=== PATIENT | female | born 1945 | race Asian ===

== ENCOUNTER 2017-02-03 15:55 | Emergency (ER) | payer MEDICARE, MEDICAID ==
[2017-02-03 16:41] VITALS: BP 156/82
--- NOTE | 2017-02-03 17:29 | UC ---
Skin Complaint HPI - HPI Summary HPI Summary: ONE WEEK AGO HAD BEEN TO [employer] IN [employer] BEGAN HAVING RASH AND ITCHINESS OF LEFT NECK; THREE DAYS AGO WAS GARDENING, HAVING FACIAL ITCHINESS, AND SWELLING. NO KNOWN ALLERGIES; NO FEVERS, NO TENDERNESS OR PAIN IN FACE. NO PAIN WITH EYE MOVEMENT. NO DENTAL PAIN. NO - History of Current Complaint Chief Complaint: UCSkin Time Seen by Provider: 02/03/17 17:09 Stated Complaint: RASH Hx Obtained From: Patient Onset/Duration: Gradual Onset, Lasting Weeks, Worse Since - FOUR DAYS Skin Exposure Onset/Duration: Weeks Ago Onset Severity: Mild Current Severity: Moderate Location: Face Character: Swelling, Pruritus Aggravating: Nothing Alleviating: Nothing Associated Signs & Symptoms: Positive: Rash. Negative: Fever, Chills, Cough, Wheezing, Drainage, Bruising, Tenderness, Red Streaks Related History: Possible Reaction to: Environmental Exposure - Allergy/Home Medications Allergies/Adverse Reactions: Allergies Allergy/AdvReac Type Severity Reaction Status Date / Time No Known Allergies Allergy Verified 02/03/17 16:38 Home Medications: Home Medications Calcium [Oyster-Triston 500] 500 mg PO 02/03/17 [History] Review of Systems Constitutional: Negative Skin: Rash Eyes: Negative ENT: Negative Respiratory: Negative Cardiovascular: Negative Gastrointestinal: Negative Genitourinary: Negative Motor: Negative Neurovascular: Negative Musculoskeletal: Negative Neurological: Negative Psychological: Negative All Other Systems Reviewed And Are Negative: Yes PMH/Surg Hx/FS Hx/Imm Hx Previously Healthy: Yes - Surgical History Surgical History: Yes Surgery Procedure, Year, and Place: COLONOSCOPY 01/28/17 - Family History Known Family History: Negative: Respiratory Disease - Social History Occupation: Retired Lives: With Family Alcohol Use: None Substance Use Type: None Smoking Status (MU): Never Smoked Tobacco Physical Exam Triage Information Reviewed: Yes Appearance: Well-Appearing, No Pain Distress, Well-Nourished Vital Signs: Initial Vital Signs Temp 98.2 F 02/03/17 16:33 Pulse 66 02/03/17 16:33 Resp 16 02/03/17 16:33 BP 156/82 02/03/17 16:33 Pulse Ox 100 02/03/17 16:33 Vital Signs Reviewed: Yes Eye Exam: Normal ENT Exam: Normal ENT: Positive: Normal ENT inspection, Hearing grossly normal, TMs normal Dental Exam: Normal Neck exam: Normal Neck: Positive: Supple, Nontender, No Lymphadenopathy Respiratory Exam: Normal Respiratory: Positive: Chest non-tender, Lungs clear, Normal breath sounds, No respiratory distress, No accessory muscle use Cardiovascular Exam: Normal Cardiovascular: Positive: RRR, No Murmur, Pulses Normal Abdominal Exam: Normal Musculoskeletal Exam: Normal Neurological Exam: Normal Psychological Exam: Normal Skin: Positive: rashes - PRURITIC MILD EDEMA OF FACE L>R. NO TENDERNESS TO PALPATION. NO ERYTHEMA. Course/Dx - Differential Diagnoses - Skin Complaint Differential Diagnoses: Angioedema, Cellulitis, Contact Dermatitis, Local Allergic Reaction, Poison Christy, Poison Harmon, Other - Diagnoses Provider Diagnoses: CONTACT DERMATITIS FACE Discharge - Discharge Plan Condition: Stable Disposition: HOME Prescriptions: predniSONE TAB* [Deltasone TAB*] 10 mg PO DAILY #28 tab Patient Education Materials: Contact Dermatitis (ED) Referrals: Randall Prather MD [Primary Care Provider] - Additional Instructions: PLEASE USE OVER THE COUNTER BENADRYL CREAM TO CONTROL FEELING OF ITCHINESS.
== END 2017-02-03 17:25 | disposition home or self-care (01) ==
LOC: UCEAST 15:55
DX: L25.9 Unspecified contact dermatitis, unspecified cause (principal)
CPT/HCPCS: 99212; G0463

== ENCOUNTER 2018-09-27 13:37 | Day surgery (SDC) | payer MEDICARE, MEDICAID ==
[~2018-09-27 13:37] MED LIST: Acetaminophen TAB* 325 MG PO PRN; Buffered Lidocaine 1% SYRIN* 1 ML/SYRINGE INTRADERM ONE; Cyclopentolate 1% OPTH.SOL* 2 ML BTL ONE; Ketorolac 0.5% OPHTH (NF) 0.5 % 5 ML BTL ONE; Lidocaine 1%* 5 ML VIAL ONE; Lidocaine 2% EPI 1:200000 MPF*10-20 ML VIAL ONE; Neomycin/Polymy/Dex OPTH.SUSP* MAXITROL 0.1% 5 ML ONE; Phenylephrine 2.5% OPTH.SOL* 2 ML BTL ONE; Povidone Iodine 5% OPTH* 30 ML BTL ONE; Proparacaine 0.5% OPHTH.SOL* 15 ML BTL ONE; acetaZOLAMIDE TAB* 250 MG ONE
[2018-09-27] MEDS ORDERED: Midazolam* 1 MG/ML 2 ML VIAL (2 MG) ONE (15:38)
[2018-09-27 16:24] VITALS: BP 158/74
--- NOTE | 2018-09-27 16:37 | OP ---
DATE OF OPERATION: 09/27/2018. DATE OF : 1945. SURGEON: Louie Obrien M.D. PREOPERATIVE DIAGNOSIS: Cataract right eye. POSTOPERATIVE DIAGNOSIS: Cataract right eye. OPERATIVE PROCEDURE: Extracapsular cataract extraction with intraocular lens implant right eye. PROCEDURE: The patient was brought to the operating room after being given 1/2% Alcaine with epineph rine drops in the preoperative area. The eye was prepped and draped in the usual sterile fashion. S terile drape and eyelid speculum were placed. Again, topical 1/2% Alcaine with epinephrine was given . A paracentesis incision was made at the 9 o'clock position with the No.75 blade. Clear cornea inc ision 2.2 x 2.2-mm was created at the 12 o'clock position starting at the anterior limbus using the 2 .2-mm keratome. The anterior chamber was irrigated with 0.4 mL of 1% non-preservative intracameral l idocaine and filled with DisCoVisc. A capsulorrhexis was completed using the cystotome and the Utrat a forceps. Hydrodissection was performed with balanced salt solution. The lens nucleus was removed w ith the Phacoemulsification handpiece without incident. Cortex was removed with the irrigation-aspir ation handpiece. The capsular bag was re-inflated using DisCoVisc and an [id number] implant was inser jeanne with the shooter. The irrigation-aspiration handpiece was used to remove all residual DisCoVisc. The eye was refilled with balanced salt solution and the wound checked and found to be watertight. Topical Maxitrol drops were given. [id number]/[facility] #: [id number]
== END 2018-09-27 16:36 | disposition home or self-care (01) ==
LOC: OREAST 13:37
PROVIDERS: ATTEND Specialist
DX: H25.811 Combined forms of age-related cataract, right eye (principal); H11.013 Amyloid pterygium of eye, bilateral; I65.29 Occlusion and stenosis of unspecified carotid artery; E05.00 Thyrotoxicosis with diffuse goiter without thyrotoxic crisis or storm
CPT/HCPCS: A9270-GY; J2250; V2632

== ENCOUNTER 2019-09-29 17:21 | Observation (INO) | payer MEDICARE, MEDICAID ==
[2019-09-29] MEDS ORDERED: NS 0.9% 1000 ML** 1,000 ML IV ONE (17:30)
--- NOTE | 2019-09-29 17:34 | ED ---
Neurological HPI - HPI Summary HPI Summary: Elda Pearce called in triage at 17:22. Dr. Martínez at [facility] bedside at 17:24. The patient is a 74 y/o F presenting to [facility] accompanied by sister with cc of slurred speech, drooling, and facial droop onset 30 minutes ago. Per sister, the patient had been feeling unwell during the day, so they were together since 1100 this morning. Around 1700, her sister noticed she began drooling and had slurred speech with a facial droop. She also stated that she felt like she was walking on oil as if the floor was slippery. Patient denies any numbness or weakness in the extremities. She is feeling well at this time as symptoms have seemed to improve. She saw a [place] medicine doctor last week and had an elevated SBP of 172 mmHg. No anticoagulant use. PMHx: HLD (medicated). No hx of strokes. No brain surgeries. Nonsmoker, no EtOH, no substance use. Medications reviewed. Allergies noted. Patient immediately to CT. Home Medications Medication Instructions Recorded Confirmed Type Alendronate Sodium 70 mg PO WEEKLY 09/20/18 09/29/19 History Atorvastatin* [Lipitor*] 40 mg PO QPM 09/20/18 09/29/19 History Cholecalciferol (Vitamin D3) 2,000 unit PO DAILY 09/20/18 09/29/19 History [Vitamin D-3] - History of Current Complaint Stated Complaint: POSSIBLE STROKE LIKE SYMPTOMS Hx Obtained From: Patient, Family/Cleaning Staff Supervisor - sister Onset/Duration: Sudden Onset, Resolved Onset Severity: Moderate Current Severity: Mild Pain Intensity: 0 Pain Scale Used: 0-10 Numeric Character: Impaired Speech, Other: - facial droop, per sister Aggravating: Unknown Alleviating: Unknown Associated Signs and Symptoms: Positive: Impaired Speech. Negative: Weakness, Numbness, Fever TPA Considered: No - NIH scale of 0 - Allergy/Home Medications Allergies/Adverse Reactions: Allergies Allergy/AdvReac Type Severity Reaction Status Date / Time No Known Allergies Allergy Verified 09/27/18 14:30 Home Medications: Home Medications Alendronate Sodium 70 mg PO WEEKLY 09/20/18 [History Confirmed 09/29/19] Atorvastatin* [Lipitor*] 40 mg PO QPM 09/20/18 [History Confirmed 09/29/19] Cholecalciferol (Vitamin D3) [Vitamin D-3] 2,000 unit PO DAILY 09/20/18 [ History Confirmed 09/29/19] PMH/Surg Hx/FS Hx/Imm Hx Endocrine/Hematology History: Denies: Hx Diabetes Cardiovascular History: Reports: Hx Hypercholesterolemia, Other Cardiovascular Problems/Disorders - cholesterol Denies: Hx Hypertension History: Denies: Hx Renal Disease Musculoskeletal History: Reports: Other Musculoskeletal History - takes fasomax every tuesday Denies: Hx Osteoporosis Sensory History: Reports: Hx Cataracts - both eyes, Hx Contacts or Glasses - reading glasses Denies: Hx Hearing Aid Opthamlomology History: Reports: Hx Cataracts - both eyes, Hx Contacts or Glasses - reading glasses - Cancer History Hx Chemotherapy: No - Surgical History Surgical History: Yes Surgery Procedure, Year, and Place: COLONOSCOPY 01/28/17 Hx Anesthesia Reactions: No - Family History Known Family History: Negative: Respiratory Disease - Social History Alcohol Use: None Hx Substance Use: No Substance Use Type: Reports: None Hx Tobacco Use: No Smoking Status (MU): Never Smoked Tobacco Review of Systems Negative: Fever Neurological/Mental Status: Other - facial droop, sensation of being unsteady with walking Positive: Slurred Speech - drooling. Negative: Weakness, Numbness All Other Systems Reviewed And Are Negative: Yes Physical Exam - Summary Physical Exam Summary: Constitutional: Well-developed, Well-nourished, Alert. (-) Distressed Skin: Warm, Dry HENT: Normocephalic; Atraumatic Eyes: Conjunctiva normal Neck: Musculoskeletal ROM normal neck. (-) JVD, (-) Stridor, (-) Tracheal deviation Cardio: Rhythm regular, rate normal, Heart sounds normal; Intact distal pulses. Radial pulses are 2+ and symmetric. (-) Murmur Pulmonary/Chest wall: Effort normal. (-) Respiratory distress, (-) Wheezes, (-) Rales Abd: Soft. (-) Tenderness, (-) Distension, (-) Guarding, (-) Rebound Musculoskeletal: (-) Edema Lymph: (-) Cervical adenopathy Neuro: Alert, Oriented x3, Strength normal, Cranial nerves II-XII are grossly intact. (-) Dysmetria, (-) Nystagmus, (-) Ataxia by finger to nose testing, (-) Sensory deficit. NIH: 0. Psych: Mood and affect Normal GCS: 15. Triage Information Reviewed: Yes Vital Signs Reviewed: Yes - Clio Coma Scale Best Eye Response: 4 - Spontaneous Best Motor Response: 6 - Obeys Commands Best Verbal Response: 5 - Oriented Coma Scale Total: 15 Procedures - Sedation Patient Received Moderate/Deep Sedation with Procedure: No Diagnostics - Laboratory Result Diagrams: 09/29/19 17:30 09/29/19 17:30 Lab Statement: Any lab studies that have been ordered have been reviewed, and results considered in the medical decision making process. - Radiology CXR Radiology Interpretation Completed By: ED Physician Summary of Radiographic Findings: No acute process. ED physician has reviewed and interpreted this imaging scan. Pending official report. - CT Brain CT CT Interpretation Completed By: Radiologist Summary of CT Findings: Impression: No acute intracranial pathology. Mild chronic small vessel ischemic change. ED physician has reviewed this report. - EKG 1746 Cardiac Rate: NL - 76 BPM EKG Rhythm: Sinus Rhythm EKG Comparison: No Significant Change - Compared to prior in 12/2012, the ST elevations appear to be chronic. Summary of EKG Findings: An EKG at 1746 reveals sinus rhythm at rate of [address] elevations in V3, V1, and V4. T wave inversions in V1. Q waves in III and aVF. Compared to prior in 12/2012, the ST elevations appear to be chronic. ED physician has reviewed and interpreted this EKG. NIH Scale - NIH Scale Level of Consciousness: Alert/Keenly Responsive Ask Patient the Month and His/Her Age: Both Correct Ask Pt to Open/Close Eyes and Extruding Machine Operator/Release Non-Paretic Hand: Both Correctly Best Gaze (Only Horizontal Eye Movement): Normal Visual Field Testing: No Visual Loss Facial Paresis-Pt to Smile & Close Eyes or Grimace Symmetry: Normal/Symmetrical Motor Function - Right Arm: No Drift-Holds 10 Seconds Motor Function - Left Arm: No Drift-Holds 10 Seconds Motor Function - Right Leg: No Drift-Holds 10 Seconds Motor Function - Left Leg: No Drift-Holds 10 Seconds Limb Ataxia-Must be out of Proportion to Weakness Present: Absent Sensory (Use Pinprick to Test Arms/Legs/Trunk/Face): Normal Best Language (Describe Picture, Name Items): No Aphasia Dysarthria (Read Several Words): Normal Extinction and Inattention: No Abnormality Total Score: 0 NIH Stroke Scale Comment: done at 17:25 Course/Dx - Course Course Of Treatment: Patient is here with what sounds like a TIA. Patient had slurred speech, drooling that occurred 30 minutes prior to arrival. Upon arrival here, patient was found to be asymptomatic. Patient had a stat CT head which showed no abnormality. Patient was noted to be hypertensive which is new for her. Patient had an NIH stroke scale of 0. He had an EKG which does show some concerning features but does not appear to be completely new compared to EKG in 2013. Patient had no chest pain or shortness of breath or any other symptoms that can be cardiac in nature. Neurology was called and they recommended getting a CTA to evaluate for critical stenosis given her CTA in 2018 which showed 80% stenosis in the left carotid. Patient was signed out to Dr. Baez pending CTA. - Diagnoses Provider Diagnoses: TIA (transient ischemic attack), Hypertension - Physician Notifications Discussed Care Of Patient With: Jasson Red - neurology Time Discussed With Above Provider: 18:07 Instructed by Provider To: Other - I discussed the patients case with Dr. Red, who requests CTA. If there is critical stenosis, then the patient will have to be transferred, but if there is not critical stenosis, the patient can be admitted here. He recommends Aspirin and Plavix at this time. - Critical Care Time Critical Care Time: 30-74 min - 35 minutes Discharge ED - Sign-Out/Discharge Documenting (check all that apply): Sign-Out Patient Signing out patient TO: Shaquille Lama - Patient is a sign-out to Dr. Shaquille Lama MD, at change of shift at 1900 on 09/29/19, pending Head/Neck CTA and disposition. - Discharge Plan Condition: Stable Referrals: Randall Prather MD [Primary Care Provider] - - Billing Disposition and Condition Condition: STABLE - Attestation Statements Document Initiated by Cadenibpito: Yes Documenting Scribe: Wendy Garcia Provider For Whom Joseline is Documenting (Include Credential): Dr. Kip Martínez MD Scribe Attestation: Wendy Valdez, scribed for Dr. Kip Martínez MD on 09/29/19 at 1847. Scribe Documentation Reviewed: Yes Provider Attestation: The documentation as recorded by the Wedny johnson accurately reflects the service I personally performed and the decisions made by me, Dr. Kip Martínez MD Status of Scribe Document: Viewed
[2019-09-29 17:40] LABS: ABS Basophils 0.1 10^3/ul (0-0.2); ABS Eosinophils 0.1 10^3/ul (0-0.6); ABS Lymphocytes 3.1 10^3/ul (1.0-4.8); ABS Monocytes 0.8 10^3/ul (0-0.8); ABS Neutrophils 4.2 10^3/ul (1.5-7.7); Eosinophil % 1.8 %; Hematocrit 42 % (35-47); Hemoglobin 13.9 g/dL (12.0-16.0); Lymphocyte % 37.5 %; Mean Corpuscular HGB Conc 33 g/dL (31-36); Mean Corpuscular Hemoglobin 32 pg (27-31); Mean Corpuscular Volume 96 fL (80-97); Mean Platelet Volume 10.5 fL (7.4-10.4); Platelet Count 192 10^3/uL (150-450); Red Blood Count 4.34 10^6 /uL (3.70-4.87); Red Cell Distribution Width 13 % (10-15); White Blood Count 8.3 10^3/uL (3.5-10.8)
[2019-09-29 17:51] LABS: Activated Partial Thrombo Time 40.1 seconds (26.0-38.0); INR 1.02 (0.82-1.09)
[2019-09-29 17:56] LABS: Albumin/Globulin Ratio 1.3 (1-3); BUN/Creatinine Ratio 22.8 (8-20); Calcium 9.3 mg/dL (8.6-10.3); EGFR African American 85.8 (>60); EGFR Non-African American 70.9 (>60); Globulin 3.1 g/dL (2-4); Potassium 4.1 mmol/L (3.5-5.0); Total Bilirubin 0.5 mg/dL (0.2-1.0); Total Protein 7.1 g/dL (6.4-8.9)
[2019-09-29 17:58] LABS: Troponin I 0.01 ng/mL (<0.03)
[2019-09-29] MEDS ORDERED: Aspirin 81 mg CHEW TAB* 81 MG TAB.CHEW PO ONE (18:10)
[2019-09-29] MEDS ORDERED: Clopidogrel TAB* 75 MG PO ONE (18:10)
[2019-09-29] MEDS ORDERED: Iohexol 350* (CONTRAST) 500 ML MDV IV ONE (18:49)
[2019-09-29 18:50] LABS: Urine Appearance Clear; Urine Bilirubin Negative (Negative); Urine Blood Negative (Negative); Urine Color Straw; Urine Glucose Negative (Negative); Urine Ketones Negative (Negative); Urine Nitrite Negative (Negative); Urine Protein Negative (Negative); Urine Specific Gravity 1.008 (1.010-1.030); Urine Urobilinogen Negative (Negative)
--- NOTE | 2019-09-29 21:16 | ED ---
Progress - Progress Note Progress Note: Receiving sign-out at 1900 pending head/neck CTA. Head/Neck CTA Impression: Left ICA is occluded at origin. This is new when compared with the patient's prior CTA. Plaque at the right carotid bifurcation with stenosis of the proximal right ICA estimated at 50%. Flow is maintained throughout both cervical vertebral arteries. ED Provider has reviewed this report. Dr. Cavanaugh, at [facility], stated does not feel this is a surgical problem and it should be treated medically. Patient will be admitted to the hospital. Dr. Armendariz, Hospitalist, accepted the patient for admission. This plan was discussed with the patient and she was agreeable with this plan. Course/Dx - Course Course Of Treatment: Receiving sign-out at 1900 pending head/neck CTA. Head/ Neck CTA Impression: Left ICA is occluded at origin. This is new when compared with the patient's prior CTA. Plaque at the right carotid bifurcation with stenosis of the proximal right ICA estimated at 50%. Flow is maintained throughout both cervical vertebral arteries. ED Provider has reviewed this report. Dr. Cavanaugh, at [facility], stated does not feel this is a surgical problem and it should be treated medically. Patient will be admitted to the hospital. Dr. Armendariz, Hospitalist, accepted the patient for admission. This plan was discussed with the patient and she was agreeable with this plan. - Diagnoses Provider Diagnoses: TIA (transient ischemic attack), Hypertension - Provider Notifications Discussed Care Of Patient With: Jasson Red - Neurology Time Discussed With Above Provider: 22:20 Instructed by Provider To: Other - Critical Care Time Critical Care Time: 30-74 min - 35 minutes Discharge ED - Sign-Out/Discharge Documenting (check all that apply): Patient Departure - Admission - Discharge Plan Condition: Stable Disposition: ADMITTED TO [facility] - Billing Disposition and Condition Condition: STABLE Disposition: Admitted to [facility] - Attestation Statements Document Initiated by Joseline: Yes Documenting Cadenibpito: Lucio Rachel Provider For Whom Joseline is Documenting (Include Credential): MD Caden Singhibpito Attestation: Lucio Valdez scribed for Shaquille Lama MD on 09/30/19 at 1908. Scribe Documentation Reviewed: Yes Provider Attestation: The documentation as recorded by the Lucio johnson accurately reflects the service I personally performed and the decisions made by me, Shaquille Lama MD Status of Scribe Document: Viewed
[2019-09-29] MEDS ORDERED: Acetaminophen TAB* 325 MG PO PRN (23:26)
[2019-09-29] MEDS ORDERED: Ondansetron INJ* 2 MG/ML VIAL IV PRN (23:26)
[2019-09-29] MEDS ORDERED: hydrALAZINE IV* 20 MG/ML VIAL IV SLOW PU PRN (23:40)
[2019-09-30 00:23] LABS: Magnesium 2.2 mg/dL (1.9-2.7)
[2019-09-30] MEDS: Enoxaparin(*) 40 MG/0.4 ML SYR SUBCUT SCH ×2 (01:22→22:19)
[2019-09-30 04:56] LABS: ABS Eosinophils 0.2 10^3/ul (0-0.6); ABS Lymphocytes 2.9 10^3/ul (1.0-4.8); ABS Monocytes 0.8 10^3/ul (0-0.8); ABS Neutrophils 4.5 10^3/ul (1.5-7.7); Eosinophil % 2.2 %; Hematocrit 38 % (35-47); Hemoglobin 12.8 g/dL (12.0-16.0); Lymphocyte % 34.3 %; Mean Corpuscular HGB Conc 34 g/dL (31-36); Mean Corpuscular Hemoglobin 33 pg (27-31); Mean Corpuscular Volume 96 fL (80-97); Mean Platelet Volume 10.3 fL (7.4-10.4); Platelet Count 163 10^3/uL (150-450); Red Blood Count 3.95 10^6 /uL (3.70-4.87); Red Cell Distribution Width 13 % (10-15); White Blood Count 8.4 10^3/uL (3.5-10.8)
--- NOTE | 2019-09-30 05:03 | HP ---
AMENDED REPORT NOW INCLUDES DESIGNATED [facility]IGNE ADMISSION HISTORY AND PHYSICAL: DATE OF ADMISSION: 09/30/19. PRIMARY CARE PHYSICIAN: Dr. Prather. PROVIDER: Jeffrey Kowalski NP. ATTENDING PHYSICIAN: Dr. Leonard.* (DICTATED BY JEFFREY KOWALSKI NP) OTHER PROVIDERS: Dr. Red. CHIEF COMPLAINT: Slurred speech and facial drooping. HISTORY OF PRESENT ILLNESS: This is a 74-year-old female with a past medical history of hyperlipidemia, Graves, osteoporosis, who came to the emergency room on 09/29/19, by the urging of her sister, due to reports of drooling and facial droop. She has been with her sister since about 11 o'clock on the a.m. of , and had been feeling unwell though did not elaborate on what that meant. Around 1700, her sister noted that she began to drool. Her speech was garbled and noted some facial drooping though was unable to state which side of her face she had noted. Her sister reported that she felt like she was walking on oil and that she had been seen by her [place]ese medicine doctor within the past week and at that time her blood pressure was elevated at 172. Upon arriving, she was initially treated as a code noel. Her NIH stroke scale was 0. Dr. Figueroa and Dr. Red were consulted, Dr. Figueroa being from the [facility]. At this time, a CTA was ordered. It revealed a complete blockage of the left internal carotid artery and 50% stenosis of the right internal carotid artery. The suggestion for care if she had further symptoms that they would transfer her from the emergency room, but when at that point the Hospitalists were asked to evaluate the patient for admission. When I saw her, she has very slight right sided facial drooping; however, there were no other deficits and a decision was made to admit the patient for observation. In the emergency room, she did receive aspirin and Plavix as well as a liter of normal saline. When she first came to the emergency room, her blood pressure was elevated 191/105 with the pulse of 83 and was otherwise asymptomatic. PAST MEDICAL HISTORY: Cataracts, osteoporosis, hyperlipidemia, Graves, amyloid pterygium. PAST SURGICAL HISTORY: Left cataract repair. HOME MEDICATIONS: 1. Atorvastatin 40 mg p.o. q.p.m. 2. Alendronate 70 mg p.o. weekly. 3. Cholecalciferol 2000 units p.o. daily. ALLERGIES: No known drug allergies. FAMILY HISTORY: Noncontributory. SOCIAL HISTORY: Denied any tobacco, EtOH or recreational substance use. She works as a med care manager for a restaurant. She is . REVIEW OF SYSTEMS: Somewhat limited due to language barrier. She was able to understand and respond to the majority of the questions; however, her primary language is Faroese and part of her history was obtained from her sister over the phone. However, the review of systems was positive for facial flushing. Denied any headache, lightheadedness, dizziness, chest pain, shortness of breath , abdominal pain, nausea, vomiting or issues moving bowels or bladder. PHYSICAL EXAMINATION GENERAL: This is a well-developed older woman resting in the stretcher, in no acute distress noted. VITAL SIGNS: 98.6 Fahrenheit, 80 pulse, 14 respirations, 99% oxygen on room air , and 150/76 blood pressure. HEENT: Conjunctivae pink and moist. Bilateral scleral icterus with arcus senilis in bilateral eyes. PERRLA. EOMs intact. No partial gaze palsy. Oropharynx clear. Mucous membranes moist. Tongue is midline. Slight right- sided facial drooping. NECK: Supple. RESPIRATORY: Lung sounds clear throughout bilaterally on room air. No accessory muscle use noted. CARDIAC: S1, S2 present. Heart rate regular. No murmurs, gallops or rubs appreciated. ABDOMEN: Soft, nontender, and nondistended with positive bowel sounds x4. MUSCULOSKELETAL: No clubbing or cyanosis of the digits. Able to move all extremities. NEUROLOGIC: Sensation intact to light touch. No focal deficits appreciated other than the facial droop as stated above. PSYCH: She is alert and oriented x4,. Thought content organized. SKIN: Intact. Facial flushing. No other open areas or lesions appreciated. DIAGNOSTIC STUDIES/LAB DATA: CTA of the head left ICA is occluded at the origin. This is new when compared with the patient's prior CTA. Plaque at the right carotid bifurcation with stenosis of the proximal right ICA estimated at 50%. Flow is maintained throughout both cervical cerebral arteries. Next, CT of the brain without contrast showed no acute intracranial pathology, but mild chronic small vessel ischemic changes. Next, chest x-ray still awaiting official radiologic read though appears to be no acute cardiopulmonary process. Pertinent lab data: BUN and creatinine ratio of 22.8, glucose 109, hemoglobin A1c 5.6, lactic acid 0.8, troponin 0.01, triglycerides 161, cholesterol 169, LDL cholesterol 71, HDL cholesterol 66.0. ASSESSMENT AND PLAN: My impression, this is a 74-year-old female with a past medical history significant for osteoporosis, hyperlipidemia, and Graves, who was admitted on 09/30/19 for transient ischemic attack likely secondary to hypertension and carotid stenosis. 1. Transient ischemic attack. Initially upon arrival, NIH stroke scale was 0. I do believe the patient does have a persistent slight right-sided facial droop. Dr. Red was consulted and will see the patient in the a.m. MRI to be ordered of her brain. Neuro checks q.4 hours. I feel that her transient ischemic attack was likely secondary to hypertension, as she was recently having elevated blood pressures on an outpatient basis and came in with blood pressure of 191/105. Added aspirin 81 mg daily to her daily regimen, which she should continue on an outpatient basis. 2. Carotid stenosis. The left internal carotid artery is completely occluded and right carotid is 50% occluded. Due to the lack of her persistent neurological deficits, the patient was not transferred to another hospital, however, I would recommend that she follow up with the vascular surgeon on an urgent outpatient basis for further evaluation and possible need for enterectomy. 3. Hyperlipidemia. She normally takes atorvastatin 40 mg at home; however, considering that her carotid occlusion has worsened since her last CTA despite her with a profile being almost at target. I have increased her atorvastatin from 40 to 80 mg. 4. Hypertension. The blood pressure goal at this time is to remain between 160 to 180 systolically to allow for some permissive hypertension for perfusion. Hydralazine order was placed for should her systolic blood pressure become greater than 180, amlodipine 5 mg will be started in the a.m. with an ultimate outpatient blood pressure goal to be below 130. 5. Osteoporosis. She can continue her alendronate. 6. DVT prophylaxis: Continue Lovenox. 7. Code status is full code. DISPOSITION: To admit OBV to [address] [place] [address]. CONDITION: Fair. TIME SPENT: Time spent with the patient is about 60 minutes with 35 of that spent [id number]. JEFFREY KOWALSKI, SALESPERSON [employer] [id number]/[facility] #: [id number] [facility] CENTERJose Ramon
[2019-09-30 05:13] LABS: BUN/Creatinine Ratio 24.2 (8-20); Calcium 8.4 mg/dL (8.6-10.3); EGFR African American 113.5 (>60); EGFR Non-African American 93.8 (>60); Potassium 3.5 mmol/L (3.5-5.0)
[2019-09-30] MEDS: Cholecalciferol TAB* 1000 UNITS PO SCH (08:00)
[2019-09-30] MEDS: Aspirin 81 mg CHEW TAB* 81 MG TAB.CHEW PO SCH (08:00)
[2019-09-30] MEDS ORDERED: amLODIPine TAB* 5 MG PO SCH (09:00)
--- NOTE | 2019-09-30 14:53 | PN ---
Subjective Date of Service: 09/30/19 Interval History: Ms. Hooper is feeling better today. She offers no complaints. She does remember all of the events from yesterday. She feels her speech is back to normal and denies any facial droop or changes in sensation. Denies CP, SOB. No concerns from nursing. Family History: Unchanged from Admission Social History: Unchanged from Admission Past Medical History: Unchanged from Admission Objective Active Medications: Acetaminophen (Tylenol Tab*) 650 mg PO Q4H PRN MILD PAIN or TEMP > 100.4 Aspirin (Aspirin 81 Mg Chew Tab*) 81 mg PO DAILY MADISYN Atorvastatin Calcium (Lipitor*) 80 mg PO QPM MADISYN Cholecalciferol (Vitamin D Tab*) 2,000 units PO DAILY MADISYN Enoxaparin Sodium (Lovenox(*)) 40 mg SUBCUT Q24H MADISYN Ondansetron HCl (Zofran Inj*) 4 mg IV Q4H PRN NAUSEA/VOMITING Vital Signs - 8 hr 09/30/19 09/30/19 07:15 11:15 Temperature 97.8 F 97.9 F Pulse Rate 64 65 Respiratory 16 16 Rate Blood Pressure 168/80 144/69 (mmHg) O2 Sat by Pulse 99 98 Oximetry Oxygen Devices in Use Now: None Appearance: Elderly female sitting in chair in NAD Ears/Nose/Mouth/Throat: Mucous Membranes Moist Neck: NL Appearance and Movements; NL JVP, Trachea Midline Respiratory: Symmetrical Chest Expansion and Respiratory Effort, Clear to Auscultation Cardiovascular: NL Sounds; No Murmurs; No JVD, RRR Abdominal: NL Sounds; No Tenderness; No Distention Extremities: No Edema Neurological: Alert and Oriented x 3, NL Sensation, NL Muscle Strength and Tone Lines/Tubes/Other Access: Clean, Dry and Intact Peripheral IV Nutrition: Taking PO's Result Diagrams: 09/30/19 04:41 09/30/19 04:41 Assess/Plan/Problems-Billing Assessment: Ms. Hooper is a 74 yo F with PMH of HLD, Grave's disease; who presented to the ED with c/o slurred speech and facial drooping and was found to have carotid stenosis and suspected TIA. - Patient Problems (1) TIA (transient ischemic attack) Code(s): G45.9 - TRANSIENT CEREBRAL ISCHEMIC ATTACK, UNSPECIFIED Comment: - Slurred speech and facial droop, resolved on arrival to ED with NIH score of 0 - CT brain unremarkable - CTA showing 100% left internal carotid stenosis and 50% on the right - MRI tomorrow - Appreciate Neuro consult - Continue aspirin, atorvastatin (2) Carotid stenosis Code(s): I65.29 - OCCLUSION AND STENOSIS OF UNSPECIFIED CAROTID ARTERY Comment : - Left interal 100% occluded and right 50% occluded - Neurologist at [facility] recommending outpatient follow up with vascular surgery - Allow permissive HTN (3) Hyperlipidemia Code(s): E78.5 - HYPERLIPIDEMIA, UNSPECIFIED Comment: - LDL at goal - Continue atorvastatin (4) Hypertension Code(s): I10 - ESSENTIAL (PRIMARY) HYPERTENSION Comment: - Allow for permissive HTN - D/c amlodipine (5) DVT prophylaxis Code(s): Z29.9 - ENCOUNTER FOR PROPHYLACTIC MEASURES, UNSPECIFIED Comment: - Lovenox (6) Full code status Code(s): Z78.9 - OTHER SPECIFIED HEALTH STATUS Comment: Status and Disposition: Observation. Anticipate d/c home when medically stable. Attending: Lucio Vences
--- NOTE | 2019-09-30 17:34 | CONS ---
CONSULTATION REPORT: DATE OF CONSULT: 11/28/19 PATIENT OF: Brenna Heard NP and Dr. Prather. HISTORY OF PRESENT ILLNESS: This is a 74-year-old woman who I am asked to evaluate for chief complaint of slurred speech and facial drooping. She presented to the ER yesterday at the recommendation of her sister. She came in because of the facial drooping and the aphasia, but denies any numbness, weakness, or visual symptoms. She had initial NIH Stroke Scale of 0 in the emergency room. She had a past history of carotid stenosis and so I recommended a CTA, which will be described as below. Because of the occlusion in her carotid that was new and the other findings, I asked the films be reviewed by the stroke team at [place] to make sure that there was no surgical intervention before admitting and they said that they did not think there was any surgical intervention needed at this point. She was therefore admitted and she notes that she remains asymptomatic at this point. She has a history of elevated cholesterol and one elevated blood pressure at home, but not on a consistent basis. PAST MEDICAL HISTORY: She has osteoporosis, Graves disease, and amyloid pterygium. PAST SURGICAL HISTORY: She is status post left cataract repair. MEDICATIONS AT HOME: Include: 1. Atorvastatin 40 mg daily. 2. Alendronate 70 mg weekly. 3. Cholecalciferol 2000 units daily. ALLERGIES: She has no known drug allergies. FAMILY HISTORY: Noncontributory. SOCIAL HISTORY: She does not smoke, drink, or use drugs. 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 REVIEW OF SYSTEMS: She denies any headache, numbness, weakness. She feels she is back to normal. There is no nausea, vomiting. Review of systems is negative in all 14 spheres. PHYSICAL EXAM: Temperature 97.8, pulse 62, respirations 16, blood pressure 115/ 60. She is alert and oriented with normal speech, although she speaks with an accent and sometimes I need to repeat myself. This seems to be due to a language barrier rather than a specific aphasia and she could name things and she had an NIH Stroke Scale of 0. There was no clear facial droop. Rodriguez were good. Disk was sharp on the right and it was hard to visualize on the left. She was not fully cooperative on that side. Motor exam revealed normal tone, strength, [id number], heel-to- starks, and she had no drift in either leg or arm. Sensation intact to light touch and double simultaneous stimulation. Pin was intact. Reflexes were 1 and equal. Toes were downgoing. DIAGNOSTIC STUDIES/LAB DATA: Her brain CT scan showed no acute intracranial pathology. There was some mild chronic small vessel ischemic changes. Her CTA was briefly described above showed left ICA occluded at the origin in the cervical region with reconstitution in the supraclinoid on the left ICA, but is much smaller in caliber than on the right. The left MCA is also smaller in caliber than on the right, but there is no definitive thrombus identified. Labs include normal BMP, CMP. LDL was 71 and her atorvastatin was increased to 80. She had aspirin and Plavix yesterday and was just placed on aspirin. Her UA was negative. IMPRESSION AND PLAN: I discussed with the patient and Brenna Heard NP that she had a transient ischemic attack without any clear residual at this point, but with significant diffuse atherosclerotic disease including left carotid occlusion. Even though this was an interval change from a prior study, there is no surgical procedure to be done and we will have her on aspirin and Plavix for a month and then she should be on single platelet therapy. Her LDL should be targeted below 80 and I discussed with Brenna Heard NP and the patient that she should not become dehydrated in the future because her brain is surviving on the basis of collateral flow. Neurologist tomorrow will review the MRI scan. She should also have a cardiac echo with bubble study and this has been discussed. I think, however, that the cause of her transient ischemic attack is most likely her atherosclerotic disease rather than any cardiac source. Thank you for sharing her case. [id number]/[facility] #: [id number] [address] HOSPITALJose Ramon
[2019-09-30] MEDS ORDERED: Atorvastatin* 80 MG TAB PO SCH (18:00)
[2019-09-30] MEDS ORDERED: Atorvastatin* 40 MG TAB PO SCH (18:00)
[2019-10-01] MEDS ORDERED: Clopidogrel TAB* 75 MG PO SCH (09:00)
[2019-10-01] MEDS: Cholecalciferol TAB* 1000 UNITS PO SCH (09:02)
[2019-10-01] MEDS: Aspirin 81 mg CHEW TAB* 81 MG TAB.CHEW PO SCH (09:03)
--- NOTE | 2019-10-01 09:47 | ECHO ---
*[facility]* [place] [address] Fax #: [phone] Transthoracic Echocardiogram Patient: Judith Hooper : 1945 Study Date: 10/01/2019 Age: 74 Gender: F HR: 53 bpm Height: 59 in /149.9 cm BSA: 1.37 m^2 Weight: 99.8 lb /45.4 kg BMI: 20.2 kg/m^2 *[facility]acker: * [facility] *Referring Physician: * Brenna Heard *Reading Physician: * Sinan Denton MD Indications: TIA. History: Arterial stenosis, involving the carotid arteries. Risk factors: Hypertension. Dyslipidemia. Conclusions Summary: - Left ventricle: Systolic function is normal. The estimated ejection fraction is 55-60%. Wall motion is normal; there are no regional wall motion abnormalities. - Left atrium: The atrium is moderately to severely dilated. - Atrial septum: No defect or patent foramen ovale is identified. - Mitral valve: There is trace regurgitation. - Aortic valve: There is no evidence of stenosis. - Pulmonary arteries: Systolic pressure can not be accurately estimated. - Study data: No prior study is available for comparison. Study data: Transthoracic echocardiogram. Procedure: Transthoracic echocardiography was performed. Image quality was good. A bubble study was performed. Complete 2D, spectral Doppler, and color flow Doppler. Location: Bedside. Patient status: Inpatient. Patient room number: 433. No prior study is available for comparison. Rhythm: Normal sinus rhythm. Findings Left ventricle: The cavity size is mild to moderately reduced. Wall thickness is moderately increased. Systolic function is normal. The estimated ejection fraction is 55-60%. Wall motion is normal; there are no regional wall motion abnormalities. Doppler parameters are consistent with abnormal left ventricular relaxation (grade 1 diastolic dysfunction). Right ventricle: The cavity size is normal. Systolic function is normal. Left atrium: The atrium is moderately to severely dilated. Right atrium: The atrium is at the upper limits of normal in size. Atrial septum: No defect or patent foramen ovale is identified. Mitral valve: The Mitral valve annulus appears calcified. The leaflets are mildly thickened. There is no evidence of stenosis. There is trace regurgitation. Aortic valve: The valve is trileaflet. The leaflets are mildly thickened. There is no evidence of stenosis. There is trace regurgitation. Tricuspid valve: The leaflets are normal thickness. There is no evidence of stenosis. There is no significant regurgitation. Pulmonic valve: The leaflets are normal thickness. There is no evidence of stenosis. There is trace regurgitation. Aorta: Aortic root: The aortic root is appears normal. Ascending aorta: The ascending aorta is appears normal and calcified. Aortic arch: The aortic arch is poorly visualized and not dilated. Pericardium: There is no significant pericardial effusion. Pulmonary arteries: Systolic pressure can not be accurately estimated. Systemic veins: Inferior vena cava: The vessel is normal in size. There is (>= 50%) respiratory change in the IVC dimension. Measurements Left ventricle Value Ref Aortic valve continued Value Ref MARYELLEN, LAX (L) 2.8 cm 3.8 - 5.2 Mean grad, S 3.0 mm Hg ---- ESD, LAX (L) 1.6 cm 2.2 - 3.5 Peak grad, S 6.0 mm Hg ---- FS, LAX 43 % 27 - 45 PW, ED, LAX (H) 1.7 cm 0.6 - 0.9 Mitral valve Value Ref E', lat violet, TDI (L) 3.4 cm/sec >=10.0 Peak E 0.84 m/se c ---- E/e', lat violet, 25 Peak A 0.89 m/sec ---- TDI Decel time 211 ms ---- E', med violet, TDI (L) 4.4 cm/sec >=7.0 Peak grad, D 2.8 mm H g ---- E/e', med violet, 19 Peak E/A ratio 0.9 ---- TDI E', avg, TDI 3.9 cm/sec Pulmonic valve Value Ref E/e', avg, TDI (H) 21 <=14 Peak v, S 0.61 m/se c ---- Peak grad, S 2.0 mm Hg ---- LVOT Value Ref Peak tab, S 0.91 m/sec Aortic root Value Ref Mean grad, S 2 mm Hg Root diam 2.7 cm <3 .7 Root max diam, ED 2.7 cm <3 .7 Ventricular septum Value Ref IVS, ED (H) 1.7 cm 0.6 - 0.9 Ascending aorta Value Ref AAo AP diam, S 3.1 cm ---- Right ventricle Value Ref AAo AP diam/bsa, S 2.3 cm/m^2 ---- MARYELLEN, LAX 1.6 cm MARYELLEN minor ax, A4C 2.6 cm 1.9 - 3.5 Aortic arch Value Ref mid Arch diam 2.7 cm ---- Left atrium Value Ref Decending aorta Value Ref AP dim, ES 3.10 cm 2.70 - Eliezer peak tab 0.41 m/sec ---- 3.80 ML dim, A4C 4.4 cm Inferior vena cava Value Ref SI dim, A4C 5.5 cm Diam 1.8 cm ---- Vol/bsa, ES, A/L (H) 50 ml/m^2 16 - 34 Pulmonary veins Value Ref Right atrium Value Ref Peak v, S 0.47 m/sec ---- SI dim, ES (H) 5.4 cm 3.4 - 5.3 Peak v, D 0.38 m/sec ---- ML dim, ES, A4C 3.1 cm 2.6 - 4.4 Peak S/D ratio 1.2 ---- Estimated RAP 8 mm Hg A rev duration 127 ms ---- Aortic valve Value Ref Violet diam, ED 1.8 cm Peak v, S 1.18 m/sec VTI, S 28.9 cm Legend: (L) and (H) jarrod values outside specified reference range. Prepared and electronically signed by Sinan Denton MD 10/01/2019 09:47
[2019-10-01 12:23] VITALS: BP 155/67
--- NOTE | 2019-10-01 15:39 | CONS ---
NEUROLOGY CONSULTATION FOLLOWUP: DATE OF FOLLOWUP: 10/01/19 LOCATION: She is an inpatient in room 433. HOSPITALIST: Dr. Daugherty. CHIEF COMPLAINT: Slurred speech, facial weakness. INTERVAL HISTORY: Since yesterday, Ms. Hooper feels fine. She does not notice any weakness, problems with speaking, or difficulty with swallowing. She has no new symptoms to report. MEDICATIONS: Reviewed and she is on: 1. Plavix 75 mg p.o. daily. 2. Zofran 4 mg IV q.4 hours as needed for nausea. 3. Lovenox 40 mg subcutaneous q.24 hours. 4. Lipitor 80 mg p.o. daily. 5. Aspirin 81 mg p.o. daily. PHYSICAL EXAM: She is well nourished and well hydrated. Temperature 98.5, most recent blood pressure 155/67. Heart rate is in the 60s and regular. On neurological exam, eye movements are normal. Visual emerson are full to confrontation. Facial musculature is symmetric. Speech is clear with a Turkmen accent. DIAGNOSTIC STUDIES/LAB DATA: Include chemistries from yesterday notable for cholesterol 169 and LDL 71. Glucose yesterday was 86. CBC was normal. MRI of the brain was done earlier today and is reviewed. The images were personally reviewed. It shows evidence of an acute infarction in the left middle cerebral artery territory, which is somewhat patchy. CT angiogram of the head from 09/29/19 is reviewed and reveals a total occlusion of the left internal carotid artery. Transthoracic echocardiogram from yesterday report is reviewed and reveals a moderately to severely dilated left atrium and is otherwise unremarkable. IMPRESSION AND PLAN: Impression is that of a left middle cerebral artery infarction probably from the left carotid occlusion. There is no surgical remedy for carotid occlusions and the duration that it has been occluded is uncertain. I agree with dual antiplatelet therapy with aspirin and Plavix for approximately 30 days and then switching to aspirin monotherapy. I agree with continuing her current statin at 80 mg. I would not recommend adding an antihypertensive agent, but should be monitored as an outpatient. She can follow up with Dr. Red in our office in approximately 4 weeks. I have discussed my impression and recommendations with her hospitalist, Brenna Heard NP. [id number]/[facility] #: [id number] [facility]
--- NOTE | 2019-10-01 21:17 | DS ---
CC: Dr. Randall Prather; Dr. Jasson Red * DISCHARGE SUMMARY: DATE OF ADMISSION: 09/29/19 DATE OF DISCHARGE: 10/01/19 PRIMARY CARE PROVIDER: Dr. Randall Prather. ATTENDING PHYSICIAN: Dr. Lucio Vences.* (DICTATED BY MELI HUYNH NP) PRIMARY DIAGNOSES: 1. Left middle cerebral artery cerebrovascular accident, no residual deficits. 2. Severe carotid stenosis. SECONDARY DIAGNOSES: 1. Hypertension. 2. Hyperlipidemia. STUDIES WHILE IN THE HOSPITAL: 1. Brain CT on 09/29/19 reads as no acute intracranial pathology. Mild chronic small vessel ischemic change. 2. Chest x-ray on 09/29/19 reads as hyperinflation. Cardiomegaly. 3. EKG on 09/29/19 shows normal sinus rhythm with a rate of 76. Minimal ST elevation in V3. Submillimeter ST changes inferiorly. 4. Head CTA on 09/29/19 reads as left cervical ICA is occluded at the origin. There is some reconstitution of flow into the supraclinoid left ICA, although much smaller in caliber than the right. Left MCA is also smaller in caliber than on the right, but no definite new intracranial intravascular thrombus was identified. Left ICA is occluded at its origin. This was new when compared to the patient's prior CTA. Plaque at the right carotid bifurcation with stenosis of the proximal right ICA estimated at 50%. Flow was maintained throughout both cervical vertebral arteries. 5. Transthoracic echocardiogram on 10/01/19 reads as left ventricular systolic function is normal. The estimated ejection fraction is 55% to 60%. Wall motion is normal and there are no regional wall motion abnormalities. The left atrium is moderately to severely dilated. No defect or patent foramen ovale was identified in the atrial septum. There is trace MR. There is no evidence of . Systolic pressure in the pulmonary arteries cannot be accurately estimated. No prior studies available for comparison. 6. Brain MRI on 10/01/19 reads as small late acute to early subacute infarcts in the left MCA territory as above. No hemorrhage or mass effect. Absent flow void along the left carotids (known left ICA occlusion). Mild chronic small vessel ischemic disease is likely. Mild cerebral/cerebellar volume loss. HISTORY OF PRESENT ILLNESS AND HOSPITAL COURSE: Ms. Hooper is a 74-year-old female with past medical history of hyperlipidemia and Graves, who presented to the emergency room on 09/29/19 with complaints of slurred speech and facial drooping. Please see the history and physical by Linda Kowalski NP, for complete summary of the events leading to this hospitalization. In short, the patient was with her sister who noted garbled speech and right facial drooping and brought her into the emergency room. In the emergency room, she was noted to have an NIH stroke scale of 0. Imaging was completed as noted above. She was noted to have a 100% occlusion of the left internal carotid, though there was no indication for intervention and so the patient was admitted by the hospitalist service. She was started on aspirin and Plavix for dual-antiplatelet therapy. She was monitored on telemetry with no evidence of arrhythmia. Neuro checks were monitored by Nursing and there was no evidence of recurrent speech changes or facial droop. The patient was noted to be hypertensive on admission with systolic pressures in the 190s. She was initially given some amlodipine to bring this down, though that was later discontinued due to carotid stenosis. She remained in the hospital over the weekend for an MRI and echocardiogram today, results are as noted above. She is noted to have a small left MCA infarct, although at this point there are no deficits noted. She was seen by Dr. Red from Neurology on the day of admission as well as yesterday and she was seen by Dr. Villanueva today. It is suspected that this CVA is secondary to atherosclerotic disease. Dr. Villanueva notes that there is no surgical remedy for carotid occlusion and agreed with dual-antiplatelet therapy for 30 days, then switching to aspirin monotherapy. He agreed with continuing current antiplatelets and avoiding any antihypertensives. Today, the patient reports feeling well. She offers no complaints. She denies any recurrent neurological symptoms. She is alert and oriented x4 with no focal deficits noted on exam. Heart has a regular rate and rhythm without murmurs, rubs, or gallops. Lungs are clear to auscultation without rhonchi, wheezes, or rales. There is no edema. Physical exam was otherwise benign. Ms. Hooper is stable for discharge today. Most recent vitals are as follows: Temp 98.5, heart rate 65, respiratory rate 18, oxygen saturation 100% on room air, blood pressure 155/67. DISCHARGE MEDICATIONS: New: 1. Aspirin 81 mg p.o. daily. 2. Plavix 75 mg p.o. daily. Changed: 1. Atorvastatin 80 mg p.o. at bedtime (previously 40 mg). Continued: 1. Fosamax 70 mg p.o. weekly. 2. Cholecalciferol 2000 units p.o. daily. DISCHARGE PLAN: Ms. Hooper will be discharged home. Activity will be as tolerated. Diet will be regular as tolerated. Medications as noted above. The patient will need to remain on dual-antiplatelet therapy for a total of 30 days. After 30 days, she can discontinue Plavix but should continue taking a baby aspirin daily indefinitely. Statin dosing has been increased. The patient does check her blood pressure at home and I have advised her that her blood pressure at this point should remain 140/90 or higher due to carotid stenosis. She will need to follow up with her primary care provider in the next 4 to 7 days and will need to follow up with Dr. Red in the office in approximately 4 weeks. She should return to the emergency room or nearest hospital for any worsening of symptoms, shortness of breath, lightheadedness, dizziness, chest discomfort, high fevers, chills, night sweats, loss of consciousness, or any other worrisome signs or symptoms. DISCHARGE CONDITION: Stable. DISCHARGE DISPOSITION: Home. This is a summarized report of a complex medical history and hospital stay. For further details, please see the entire medical record. TIME SPENT: Approximately 45 minutes was spent on this discharge. MELI HUYNH, MEDIA CONSULTANT [employer] [id number]/[facility] #: [id number] [facility]
== END 2019-10-01 15:10 | disposition home or self-care (01) ==
LOC: ED 17:21 → MEDTELE 23:26
PROVIDERS: ADMIT Hospitalist; ATTEND Internal Medicine
DX: I63.89 Other cerebral infarction (principal); I65.29 Occlusion and stenosis of unspecified carotid artery; E78.5 Hyperlipidemia, unspecified; I10 Essential (primary) hypertension; E78.00 Pure hypercholesterolemia, unspecified; Z79.899 Other long term (current) drug therapy; R94.31 Abnormal electrocardiogram [ECG] [EKG]
CPT/HCPCS: 36415; 70450; 70496; 70498; 70551; 71045; 80048; 80053; 80061; 81003; 83036; 83605; 83735; 84484; 85025; 85610; 85730; 93005; 93306; 96360; 96372; 99284; A9270-GY; G0378; J1650; Q9967